=== PATIENT | female | born 1965 | race Caucasian/White ===

== ENCOUNTER 2016-06-16 15:20 | Inpatient (IN) | payer OTHER ==
[~2016-06-16] VITALS: Ht 157.5 cm; Wt 103.4 kg
--- NOTE | ~2016-06-16 | HC ---
[facility] [place] [address] CONSULTATION Name: LOU DURAN Room #: 458-P ADM IN M.R.#: [id number] Admission: 06/16/16 Attend Phys: Nahun Tello MD Discharge: Date of : 63 Report #: [id number] THIS REPORT FOR: //name// CC: Nahun Tello MD DATE OF SERVICE: 06/17/2016 REASON FOR CONSULTATION: Elevated creatinine level. HISTORY OF PRESENT ILLNESS: This is a 50-year-old female with a rather complex medical history. She relates most of this starting back in 2011 when she suffered a left parietal CVA. She was cared for in [place] at that time as she lived in [place], [place]. She does not recall the etiology of the CVA. No thrombosis that were found. She did not recall ever having a hypercoagulable workup. Yesterday, she began having some additional left-sided symptoms, which was the same side she had her symptoms in 2011. This included some mild left droop of her eyebrow, tingling and weakness in her left hand. She was sent to the Emergency Room. Radiologic studies were negative, but she was admitted. She has been seen by Dr. Hay of neurology and workup is again underway. During this time, she had admission labs which showed a creatinine level of 2.9 with a BUN of 55. In talking to her, she remembers a previous episode of acute kidney injury. Again, that was in about 2011. She was told she was near to needing dialysis, but apparently recovered. I do have one previous creatinine level available for August of 2015 done here in the Emergency Room and it was 0.8 at that time. She has a history of some hypertension. About a month ago, she was started on lisinopril. She has been chronically on some Maxzide. She was also started on some Celebrex about a month ago. I do not know of interim creatinine levels since she was put on those. She tells me she has had occasional urinary tract infection. She had one episode of kidney stone around the time of a child . She is unaware of proteinuria. She did say she has significant glycosuria as a child. PAST MEDICAL HISTORY: She had the CVA again in 2011, which would have been at age 46. Significantly before that, it sounds like she had a cardiac event and that is a bit undetermined what that was. She tends to run a tachycardia, quite often she is chronically on some metoprolol for that. She has obstructive sleep apnea and chronically wears BiPAP. She has had previous episodes of pancreatitis. PAST SURGICAL HISTORY: Include hysterectomy, two sections, right shoulder surgery and a cholecystectomy. MEDICATIONS ON ADMISSION: Include lisinopril 40 mg daily and just started a [facility] [address] [place] [address] CONSULTATION Name: LOU DURAN Room #: 458-P ADM IN M.R.#: [id number] Admission: 06/16/16 Attend Phys: Nahun Tello MD Discharge: Date of : 63 Report #: [id number] month ago it sounds like, albuterol inhaler, Adderall 10 mg daily, aspirin 81 mg daily, Celebrex 200 mg daily, estradiol 1 mg daily, gabapentin 600 mg in the morning and 300 mg at bedtime, p.r.n. hydrocodone, isosorbide mononitrate 30 mg daily, lansoprazole 30 mg b.i.d., lorazepam b.i.d., metoprolol 100 mg daily, Singulair 10 mg daily, Zoloft 100 mg b.i.d., Zanaflex 4 mg at bedtime, Maxzide 75/50 mg daily. ALLERGIES: No known medical allergies. FAMILY HISTORY: Negative for any renal disease, of which she is aware. SOCIAL HISTORY: The patient is single, lives in [place], [place]. 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 She is a nonsmoker. REVIEW OF SYSTEMS: States that she usually tends to run tachycardia. At times, she is symptomatic of that, but says it happens very frequently, that is why she is on the metoprolol. Denies current dyspnea, cough. She had 2 days of kind of an upset GI tract with mild nausea, had some loose stools, little bit of diarrhea, unaware of fevers, chills or sweats. She has some chronic arthralgias, that is why she is on the Celebrex, she might have also taken some p.r.n. Advil. She reports no dysuria, no change in urine appearance. She has had some mild visual changes that associate with her neurologic changes from yesterday. Says she does not regulate her diet much at all. I would note that there was one gallon jaw from pickles in her room, still half full of pickle juice and she says for years she has regularly taken pickle juice on a frequent basis, although she states she has been trying to cut down that recently. Does salt her food somewhat, but thinks she is cutting back on that. PHYSICAL EXAMINATION: GENERAL: A 50-year-old female, awake, alert, responsive and in no acute distress at this time. VITAL SIGNS: Blood pressures today have ranged from 97/37 to 146/80, heart rate is 86, temperature 97.4, oxygen saturation 100% and respiratory rate 18. HEENT: Shows pupils are equal and reactive. Sclerae are nonicteric. Oral mucosa is moist and without lesions. NECK: Supple, without adenopathy, thyromegaly, JVD or bruit. CHEST: Clear bilaterally in all lung galvez. HEART: Has a regular rate and rhythm and is not showing any signs of tachycardia. ABDOMEN: Obese, has active bowel sounds, is nontender. I cannot palpate organomegaly or masses. She has no CVA tenderness. EXTREMITIES: Show no peripheral edema. She has 2+ peripheral pulses. LABORATORY DATA: Sodium ____, potassium 4.4, chloride 100, bicarbonate 24, BUN 55, creatinine 2.9, glucose 106, calcium 9.5, magnesium 2.3, total protein 7.8, albumin 4.1. Normal liver function tests. INR 1.0. White count 12.9, [address] [address] CONSULTATION Name: LOU DURAN Room #: 458-P [facility] IN [facility].#: [id number] Admission: 06/16/16 Attend Phys: Nahun Tello MD Discharge: Date of : 63 Report #: [id number] hemoglobin 12.6, hematocrit 38.1, platelets 365,000. Differential, 75 neutrophils, 17 lymphs, 6 monos, 1 basophil. No urinalysis done. ASSESSMENT: 1. Acute kidney injury. She had a normal creatinine level in August 2015, so in the past 10 months it has gone up to this level. She had multiple medication changes recently including the initiation of lisinopril and the initiation of the Celebrex. She chronically was on a diuretic. She might have had some additional p.r.n. Advil. She has been asymptomatic from a urinary standpoint, no signs of recurrent infection. We certainly need to check a urine study as well as an ultrasound, but I think this is mostly medication related. I will put her on some IV normal saline, we will recheck creatinine in the morning and look for other evidence of intrinsic renal disease. I do not find anything by history to suggest that. Again, this is most likely medication related. 2. Neurologic changes as discussed by Dr. Hay, I will defer to him. 3. Hypertension by history, currently okay off medications. 4. History of prior cerebrovascular accident, 2011. Hypercoagulable workup being repeated by Dr. Hay and my greatest concern. 5. Chronic tachycardia, on metoprolol, she can continue that. 6. Sleep apnea, chronically wears BiPAP. She will need to continue that. PLAN: 1. Renal ultrasound. 2. Urine studies including urinalysis and fractional excretion of sodium. 3. Start her on IV fluids normal saline 100 mL per hour. 4. Stop her lisinopril, stop her Maxzide and stop her Celebrex. 5. Avoid other nonsteroidals. 6. Repeat labs in the morning. 7. We will follow along with care of this patient. 8. She will want to stay off the pickle juice nursing home due to the massive salt load she gets with that. <ELECTRONICALLY SIGNED> By: Zev Barillas MD 06/18/16 0816 1211 [id number] Zev Barillas MD /nt
--- NOTE | ~2016-06-16 | EKG ---
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
--- NOTE | ~2016-06-16 | H ---
[facility] [place] [address] HISTORY AND PHYSICAL Name: LOU DURAN Room #: 458-P [facility] IN M.R.#: [id number] Admission: 06/16/16 Attend Phys: Nahun Tello MD Discharge: 06/19/16 Date of : 63 Report #: [id number] THIS REPORT FOR: //name// CC: Nahun Tello DATE OF SERVICE: 06/17/2016 CHIEF COMPLAINT: Left-sided numbness, began at 10:00 on the . HISTORY OF PRESENT ILLNESS: The patient was work and felt left arm, face and leg numbness. She had been living that way and then developed these symptoms. She does report a history of a prior CVA in the past, hypertension and a prior OK. She has weakness on the left side from a prior OK. She does take aspirin and statin daily. She denies any slurred speech or loss of consciousness. PAST MEDICAL HISTORY: Significant for: 1. Prior CVA. 2. Hypertension. 3. OK, coronary artery disease. 4. Reflux. 5. History of pancreatitis. MEDICATIONS: Include Zanaflex 4 mg at bedtime, Nitrostat p.r.n., albuterol p.r.n., aspirin 81 mg a day, Singulair 10 mg a day, Adderall 10 mg a day, Ativan 1 mg b.i.d., hydrocodone p.r.n. pain, Phenergan 25 mg p.r.n., Zoloft 100 mg b.i.d., lisinopril 40 mg a day, Maxzide 75/50 daily, Estrace 1 mg a day, metoprolol 100 mg a day, Imdur 30 mg a day, gabapentin 600 mg in the morning and 300 at bedtime, Prevacid 30 mg b.i.d. and Celebrex 200 mg a day. SOCIAL HISTORY: Nonsmoker, nondrinker. ALLERGIES: No known allergies. REVIEW OF SYSTEMS: CONSTITUTIONAL: No fevers or chills. HEENT: No headaches or visual changes. CHEST: No chest pain, tightness in chest, shortness of breath, cough or sputum production. GASTROINTESTINAL: No nausea, vomiting, diarrhea or constipation. GENITOURINARY: No burning or frequency. EXTREMITIES: No pain. She has numbness as above. PHYSICAL EXAMINATION: VITAL SIGNS: Blood pressure 136/74, pulse is 95 and respiratory rate 17. She is afebrile. GENERAL: She is currently awake, alert and in no acute distress. [address] [address] HISTORY AND PHYSICAL Name: LOU DURAN Room #: 458-P [facility] IN ..#: [id number] Admission: 06/16/16 Attend Phys: Nahun Tello MD Discharge: 06/19/16 Date of : 63 Report #: [id number] HEENT: Her mucous membranes are moist. NECK: Supple, without adenopathy, thyromegaly or bruits. CHEST: Clear to auscultation. CARDIOVASCULAR: Regular rate and rhythm, without murmur. ABDOMEN: Soft. No masses. Bowel sounds are active. EXTREMITIES: Show no edema. She does have some mild paresthesia on the left side from a prior stroke. She currently has normal functioning and strength equally bilaterally. [id number] is intact. No pertinent drift. Her gait is normal. NEUROLOGIC: Mood is intact. LABORATORY DATA: EKG shows sinus rhythm with rate of 95. No ST-segment changes. Sodium 135, potassium 4.4, chloride 100, bicarbonate 24, BUN 55, creatinine 3.9, glucose 106 and calcium 9.5. Magnesium 2.3. AST 11, ALT 22, alkaline phosphatase 66, total protein is 7.8. INR is 1.0. WBCs are 12.9, hemoglobin 12.6, hematocrit 38.1, platelet count 365,000, segs [address] of the head shows no intracranial process. X-ray of the chest has no intracranial process. ASSESSMENT AND PLAN: 1. Transient ischemic attack. Neurology has seen. We will get an MRI and extensive workup. Dr. Hay thought that this was atypical for a stroke, more likely some other neurologic event. They will pursue the workup with blood work and CTA if needed. 2. Acute kidney injury. Started on IV fluids with consult to the renal. Stopping Celebrex, lisinopril and the diuretic. <ELECTRONICALLY SIGNED> By: Nahun Tello MD 06/28/16 1250 1324 1504 Nahun Tello MD /nt
--- NOTE | ~2016-06-16 | 2DMMODE ---
[facility] [place] [address] 2 D/M-MODE ECHOCARDIOGRAM Name: LOU DURAN Room #: 458-P [facility] IN M.R.#: [id number] Admission: 06/16/16 Attend Phys: Nahun Tello, Discharge: Date of : 63 Date of Service: 06/18/16 0753 Report #: [id number] THIS REPORT FOR: //name// Transthoracic Echocardiography Ordering physician: Zahida Gomez Referring physician: Zahida Gomez Take Off Man: Felicita Sánchez Indications/History: TIA. Hx: IL, CVA, HTN, obesity. BP: 111 / HR: 84bpm Height: 62in Weight: 229.5lb 63 Study data: M-mode, complete 2D, complete spectral Doppler, and color Doppler. Location: Bedside. Routine. Image quality was adequate. Intravenous contrast (agitated saline) was administered. 2D measurements Normal Normal LVID ED 44.4mm 36-57 IVS ED 10.1mm 6-11 LVID ES 25.6mm 23-40 LVPW ED 9.2mm 6-11 LA volume 16ml/m2 16-28 AoRoot diam 27.4mm 21-37 index ED LVOT diameter 20mm 18-23 Findings: Left ventricle: The cavity size was normal. Wall thickness was normal. Systolic function was normal. The estimated ejection fraction was in the range of 60% to 65%. Wall motion was normal. Right ventricle: The cavity size was normal. Systolic function was normal. Right atrium: The atrium was normal in size. Left atrium: The atrium was normal in size. Volume index: 16ml/m2 (S). Atrial septum: Small amount of shunting on contrast bubble injection consistent with a PFO. Aortic valve: Structurally normal valve. Doppler: [facility] [address] [place] [address] 2 D/M-MODE ECHOCARDIOGRAM Name: LOU DURAN Room #: 458-P [facility] IN [place].#: [id number] Admission: 06/16/16 Attend Phys: Nahun Tello, Discharge: Date of : 63 Date of Service: 06/18/16 0753 Report #: [id number] There was no stenosis. No regurgitation. Peak velocity: 142.3cm/s (S). Mitral valve: Structurally normal valve. Doppler: There was no evidence for stenosis. No regurgitation. Peak E-wave velocity: 85cm/s. Peak gradient: 2.9mm Hg (D). Peak A-wave velocity: 71.2cm/s. Tricuspid valve: Structurally normal valve. Doppler: There was no evidence for stenosis. Trivial regurgitation. Regurgitant peak velocity: 197.5cm/s. Peak RV-RA gradient: 16mm Hg (S). Pulmonic valve: Structurally normal valve. Doppler: There was no evidence for stenosis. Trivial regurgitation. Pericardium: There was no pericardial effusion. Aorta: Aortic root: The aortic root was normal in size. Pulmonary artery: Systolic pressure was estimated to be 21mm Hg. Diastolic function: Features are consistent with a pseudonormal left ventricular filling pattern, with concomitant abnormal relaxation and increased filling pressure (grade 2 diastolic dysfunction). Systemic veins: Inferior vena cava: The vessel was normal in size; the respirophasic diameter changes were in the normal range (= 50%). Conclusions 1. Left ventricle: Systolic function was normal. The estimated ejection fraction was in the range of 60% to 65%. Wall motion was normal. 2. Atrial septum: Small amount of shunting on contrast bubble injection consistent with a PFO. 3. Aortic valve: Structurally normal valve. There was no stenosis. No regurgitation. 4. Mitral valve: Structurally normal valve. No regurgitation. 5. Pericardium, extracardiac: There was no pericardial effusion. 6. Pulmonary arteries: Systolic pressure was estimated to be 21mm Hg. <ELECTRONICALLY SIGNED> By: Milind Thao MD, [facility] 06/18/16 1005 0753 1005 Milind Thao MD, [facility] /[email or web address]
[~2016-06-16 15:20] MED LIST: ACCUNEB SO1.25 MG/1; ADDERALL 10 MG10 MG PO; ASPIR 8181 MG PO; ATIVAN1 MG PO; NITROSTAT0.4 M1; NORCO 5-325 TA1 EACH PO; PHENERGAN 25 MG25 M1 PO; SINGULAIR 10 MG10 M1 PO; ZANAFLEX4 MG PO; ZOFRAN ODT4 MG PO; ZOLOFT100 MG PO
[2016-06-16 15:21] VITALS: BP 136/74
[2016-06-16 15:55] LABS: ABSOLUTE NEUTROPHILS 9.7 thou/uL (1.4-8.2); EOSINOPHILS 0.1 % (0.0-3.0); HEMATOCRIT 38.1 % (37.0-47.0); HEMOGLOBIN 12.6 gm/dL (12.0-15.0); LYMPHOCYTES 17.4 % (24.0-44.0); MCH 28.4 pg (26.0-34.0); MCHC 33.1 % (28.0-37.0); MCV 85.8 fL (80.0-100.0); MONOCYTES 6.3 % (1.0-8.0); PLATELET COUNT 365 thou/uL (150-400); POLYS 75.2 % (36.0-66.0); RBC 4.44 mil/uL (4.20-5.00); RDW 14.2 % (10.5-14.5); WBC 12.9 thou/uL (4.0-11.0)
[2016-06-16 15:56] LABS: MANUAL DIFF NO
[2016-06-16 16:03] LABS: ANION GAP 12 mmol/L (7-16); BUN 55 mg/dL (7-18); CALCIUM 9.5 mg/dL (8.5-10.1); CHLORIDE 100 mmol/L (98-107); CO2 24 mmol/L (21-32); CREATININE 2.9 mg/dL (0.6-1.3); GLUCOSE 106 mg/dL (70-99); POTASSIUM 4.4 mmol/L (3.5-5.1); SODIUM 136 mmol/L (136-145)
[2016-06-16 16:09] LABS: PROTIME 10.3 Seconds (9.3-11.4)
[2016-06-16 16:11] LABS: ALBUMIN 4.1 g/dL (3.4-5.0); ALKALINE PHOSPHATASE 66 U/L (46-116); MAGNESIUM 2.3 mg/dL (1.8-2.4); SGOT 11 U/L (15-37); SGPT 22 U/L (30-65); TOTAL BILIRUBIN 0.3 mg/dL (<0.1-1.0); TOTAL PROTEIN 7.8 g/dL (6.4-8.2); TROPONIN-I < 0.04 ng/mL (<0.04-0.07)
[2016-06-16] MEDS ORDERED: TRIAMTERENE-HC1 EAC3 PO (16:12)
[2016-06-16] MEDS ORDERED: LISINOPRIL40 MG PO (16:12)
[2016-06-16] MEDS ORDERED: ESTRADIOL 1 MG T1 M1 PO (16:12)
[2016-06-16] MEDS ORDERED: LOPRESSOR100 M1 PO (16:13)
[2016-06-16] MEDS ORDERED: IMDUR 30 MG TAB30 M1 PO (16:13)
[2016-06-16] MEDS ORDERED: NEURONTIN300 MG PO (16:14)
[2016-06-16] MEDS ORDERED: NEURONTIN 300300 M1 PO (16:14)
[2016-06-16] MEDS ORDERED: LANSOPRAZOLE30 MG PO (16:14)
[2016-06-16] MEDS ORDERED: CELEBREX 200 M200 M1 PO (16:15)
[2016-06-16 18:56] VITALS: BP 121/68
[2016-06-16 20:00] VITALS: BP 111/59
[2016-06-17 04:15] VITALS: BP 97/37
[2016-06-17 08:15] VITALS: BP 146/80
[2016-06-17 08:30] LABS: CHOLESTEROL 192 mg/dL (<200); HDL CHOLESTEROL 44 mg/dL (>40); LDL CHOLESTEROL 107 mg/dL (<100); TC:HDL 4.4 Ratio (Not establshd); TRIGLYCERIDE 207 mg/dL (<150); VLDL 41 mg/dL (<40)
[2016-06-17 12:31] VITALS: BP 143/92
[2016-06-17 13:16] LABS: URINE BILIRUBIN NEGATIVE (Negative); URINE BLOOD NEGATIVE (Negative); URINE COLOR YELLOW; URINE GLUCOSE-RANDOM* NEGATIVE (Negative); URINE KETONES NEGATIVE (Negative); URINE LEUKOCYTES-REFLEX NEGATIVE (Negative); URINE PROTEIN (DIPSTICK) NEGATIVE (Negative); URINE UROBILINOGEN 0.2 E.U./dl (0.2-1.0)
[2016-06-17 17:06] VITALS: BP 99/71
[2016-06-17 19:33] VITALS: BP 132/87
[2016-06-17 21:06] LABS: URINE CREATININE-RANDOM* 78.4 mg/dL (Not Estab.)
[2016-06-18 02:10] LABS: GLYCOHEMOGLOBIN (HGB A1C) 5.7 % (4.8-5.6)
[2016-06-18 03:51] VITALS: BP 111/63
[2016-06-18 06:34] LABS: ALBUMIN 3.3 g/dL (3.4-5.0); CALCIUM 8.4 mg/dL (8.5-10.1); PHOSPHORUS 3.9 mg/dL (2.5-4.9); POTASSIUM 4.3 mmol/L (3.5-5.1)
[2016-06-18 06:36] LABS: CREATININE 1.9 mg/dL (0.6-1.3)
[2016-06-18 08:33] VITALS: BP 117/59
[2016-06-18 13:14] VITALS: BP 125/70
[2016-06-18 15:30] VITALS: BP 118/46
[2016-06-18 21:02] VITALS: BP 126/65
[2016-06-19 04:20] VITALS: BP 121/67
[2016-06-19 06:10] LABS: CALCIUM 8.1 mg/dL (8.5-10.1); CREATININE 1.2 mg/dL (0.6-1.3); MAGNESIUM 1.7 mg/dL (1.8-2.4)
[2016-06-19 08:00] VITALS: BP 123/55
[2016-06-19 12:00] VITALS: BP 119/70
[2016-06-19 13:25] VITALS: BP 119/70
[2016-06-21 23:11] LABS: ANTITHROMBIN III 115 % (75-135); DIL. RUSSELL VIPER VENOM 50.6 sec (0.0-44.0)
[2016-06-23 14:11] LABS: LYME ANTIBODY SCREEN* <0.91 ISR (0.00-0.90)
== END 2016-06-19 16:13 | disposition home or self-care (01) | DRG 683 ==
LOC: ER 15:20 → 4W 16:39 → EROBS 16:39 → 4W 18:54
PROVIDERS: Emergency Medicine; Internal Medicine; Internal Medicine Nephrology; Psychiatry & Neurology Neurology; Psychiatry & Neurology Neuromuscular Medicine
DX: N17.9 Acute kidney failure, unspecified (principal); Z68.41 Body mass index [BMI] 40.0-44.9, adult; I10 Essential (primary) hypertension; E78.5 Hyperlipidemia, unspecified; K21.9 Gastro-esophageal reflux disease without esophagitis; E66.9 Obesity, unspecified; R20.0 Anesthesia of skin; Z82.49 Family history of ischemic heart disease and other diseases of the circulatory system; Z86.73 Personal history of transient ischemic attack (TIA), and cerebral infarction without residual deficits; I25.2 Old myocardial infarction
CPT/HCPCS: 10045

== ENCOUNTER → 2016-09-22 | Outpatient (CLI) | payer OTHER ==
[~2016-09-22] MED LIST changes: +CELEBREX 200 M200 M1 PO; +ESTRADIOL 1 MG T1 M1 PO; +IMDUR 30 MG TAB30 M1 PO; +LANSOPRAZOLE30 MG PO; +LISINOPRIL40 MG PO; +LOPRESSOR100 M1 PO; +NEURONTIN 300300 M1 PO; +NEURONTIN300 MG PO; +TRIAMTERENE-HC1 EAC3 PO
[2016-09-24 00:06] LABS: HEX. PHASE PHOSPHOLIPID 1 sec (0-11)
== END ==
LOC: LABMALL 10:50
PROVIDERS: Internal Medicine Hematology & Oncology
DX: I63.9 Cerebral infarction, unspecified (principal)

== ENCOUNTER 2017-04-01 05:17 | Day surgery (SDC) | payer OTHER ==
[~2017-04-01] VITALS: Ht 157.5 cm; Wt 108.4 kg
--- NOTE | ~2017-04-01 | O ---
[address] [address] OPERATIVE REPORT Name: LOU DURAN Room #: 416-P [facility]..#: [id number] Admission: 04/01/17 Attend Phys: Humza Mccray MD, F Discharge: Date of : 63 Report #: [id number] THIS REPORT FOR: //name// CC: EMELY Mccray DATE OF SERVICE: 04/01/2017 SURGEON: Humza Mccray M.D. COTTON EXPERT: Renan Carney M.D. PREOPERATIVE DIAGNOSES: 1. Morbid obesity. 2. Gastroesophageal reflux disease. 3. Hypertension. 4. History of stroke. 5. Depression. 6. Fibromyalgia. 7. Arthritis. 8. Obstructive sleep apnea. POSTOPERATIVE DIAGNOSES: 1. Morbid obesity. 2. Gastroesophageal reflux disease. 3. Hypertension. 4. History of stroke. 5. Depression. 6. Fibromyalgia. 7. Arthritis. 8. Obstructive sleep apnea. PROCEDURE: Laparoscopic sleeve gastrectomy with EGD. ANESTHESIA: General endotracheal anesthesia and local anesthetic. ESTIMATED BLOOD LOSS: 5 mL. SPECIMEN: Lateral stomach. COMPLICATIONS: None appreciated. INDICATIONS FOR PROCEDURE: This is a 51-year-old female patient who stands 5 feet 2 inches and weighs 237 pounds at her most recent office visit with a BMI [address] [address] OPERATIVE REPORT Name: LOU DURAN Room #: 416-P REG [facility]..#: [id number] Admission: 04/01/17 Attend Phys: Humza Mccray MD, F Discharge: Date of : 63 Report #: [id number] of 43.4. Most of her weight issues have been over the past 3 years, during which time she had gone from 180 pounds to as high as 390 pounds, now down to her current weight. Her maximum weight was felt to be secondary to steroids, which she took for respiratory failure. She has tried numerous weight loss programs and plans with limited weight loss success. Any amount of weight she has lost, she has quickly regained plus additional weight after stopping the modality. She has numerous weight-associated comorbid conditions and complaints. She has been cleared for surgery from a multidisciplinary standpoint and her anticoagulation has been addressed by Dr. Erma Dillard with the hematology service. Bariatric surgery is indicated. She presents today for laparoscopic sleeve gastrectomy with EGD. OPERATIVE FINDINGS: On EGD, the patient's esophagus, stomach and duodenum to the third portion were normal without appreciable polyps, masses, diverticula, or ulcers. On retroflexion of the scope within the antrum of the stomach, a hiatal hernia was not seen. Laparoscopically, the patient had an enlarged stomach. Her liver was relatively normal-sized without francheska steatohepatitis changes. The colon and small bowel in the surrounding area appeared otherwise normal. The gastric sleeve staple line was located 1 cm lateral to the GE junction, 3 cm lateral to the incisura, and 4 cm lateral to the pylorus. The leak test was negative, whereby immediately after applying Tisseel to the staple line, the gastroscope was used to gently insufflate air into the stomach and no air bubbles were seen forming within the Tisseel. There was no endoluminal bleeding seen with the gastroscope. No other significant intraabdominal pathology was identified. At the conclusion of the operation, the sponge, needle, and instrument counts were correct. There was no evidence for iatrogenic injury. The excised stomach held nearly 1 liter of fluid on the back table. DESCRIPTION OF PROCEDURE IN DETAIL: After the benefits and risks of the procedure were explained to the patient which include but are not limited to risks of bleeding, infection, postoperative pain, postoperative expectations and risks of DVT and pulmonary embolus, informed consent was obtained. The patient was identified in the preoperative holding area. The patient was given IV antibiotics as documented in the chart in line with SCIP protocol. The patient was then taken to the operating room and was placed in the supine position. The patient was given IV sedation and was intubated without incident. SCDs were placed on the patient's bilateral lower extremities prior to induction of anesthesia. The patient had been placed in the modified low lying dorsal lithotomy position in stirrups on the beanbag. The beanbag and the patient were taped to the bed to secure the patient. A time-out was then performed to correctly identify the patient and procedure. An orogastric tube was placed by anesthesia. A bite block was placed and the fiberoptic EGD scope was passed into the patient's oropharynx, down the [address] [address] OPERATIVE REPORT Name: LOU DURAN Room #: 416-P REG [facility]..#: [id number] Admission: 04/01/17 Attend Phys: Humza Mccray MD, F Discharge: Date of : 63 Report #: [id number] esophagus, into the stomach, and into the third portion of the duodenum. Findings are as noted above. The scope was slowly withdrawn into the antrum and the scope was retroflexed. The hiatus was visualized. The scope was then straightened and the end of the gastroscope was placed at the pylorus. The stomach was decompressed with the scope. The patient's abdomen was then prepped and draped in the standard sterile fashion with surgical prep. Local anesthetic was infiltrated into the skin and subcutaneous tissue in the left supraumbilical area where a sharp #15-blade scalpel was used to make a 5-mm incision. The 5-mm Visiport was placed intraperitoneally with the 5-mm 0-degree angled laparoscope. Pneumoperitoneum was then achieved with insufflation of carbon dioxide to 15 mmHg. A 5-mm 30-degree angled laparoscope was then inserted. The 15-mm port was placed in the right supraumbilical area after local anesthetic was infiltrated into the skin and subcutaneous tissue and an appropriately sized incision was made. Two additional 5 mm ports were placed in the left abdomen after local anesthetic was infiltrated and incisions were made. All ports were placed under direct visualization. The patient was then placed in reverse Trendelenburg position. Local anesthetic was infiltrated into the skin and subcutaneous tissue in the subxiphoid area and a 5-mm incision was made through which a 5-mm obturator was passed into the abdominal cavity through the fascia to create a passageway for the Ac liver retractor. The retractor was placed to retract the liver anteriorly. The retractor was held in place with the Iron Foreign Language Stenographer apparatus. All abdominal adhesions were then taken down with blunt dissection, sharp dissection and judicious use of the ultrasonic dissector. The gastrosplenic ligament and short gastric vessels were then divided using the ultrasonic dissector with appropriate traction. Bleeding points were made hemostatic with the ultrasonic dissector. Dissection was carried proximally up to the left coy of the diaphragm. The distal end point of dissection was then measured at 4 cm proximal to the pylorus. The short gastric vessels and gastrocolic ligaments were dissected to that level. The stomach was then rotated medially to visualize any posterior attachments/adhesions to the stomach. The adhesions were dissected with a combination of sharp dissection and use of the ultrasonic dissector. The endoscope was then slightly withdrawn to place it along the lesser curvature of the stomach. Suction was applied to the orogastric tube which was then removed, leaving the endoscope in place as a bougie. The gastric sleeve was then created. Two black loads of the powered endoscopic DANIELITO stapler buttressed with Atiya-Strips were used to staple and divide the stomach 4 cm proximal to the pylorus. Additional green loads buttressed with Atiya-strips were used to staple off the remainder of the stomach using the endoscope as the bougie. Care was taken to ensure that greater than 3 cm of space was present between the incisura and the staple line. The stomach was fully transected and placed in the right upper quadrant of the abdomen for later [address] [address] OPERATIVE REPORT Name: LOU DURAN Room #: 416-P REG [facility] M.R.#: [id number] Admission: 04/01/17 Attend Phys: Humza Mccray MD, F Discharge: Date of : 63 Report #: [id number] removal. The staple line of the sleeve was then clipped with Hemoclips along the staple line to provide hemostasis. Tisseel was applied to the entire length of the staple line with the Duplospray aerosolizer to fully ensure hemostasis. A leak test was performed next. The sleeve was insufflated with the endoscope which was slowly withdrawn. No air bubbles were seen in the Tisseel laparoscopically. Endoluminally, no bleeding was seen. The stomach was fully decompressed and the scope was slowly withdrawn. The Ac liver retractor was then loosened from the Iron Foreign Language Stenographer apparatus and it was removed without difficulty. The stomach was then removed from the patient's body through the 15-mm port under direct visualization. A small amount stretching of the fascia was required to create an opening large enough for removal of the stomach. After its removal, the 15-mm port site fascial opening was closed with an 0-PDS suture using the Wilmer-Danielle laparoscopic fascial closure device. All ports were removed after the abdominal cavity was desufflated. The fascial suture was tied. Interrupted subcuticular 4-0 Monocryl sutures and Dermabond were used to close all skin incisions. The patient tolerated the procedure well. The patient was awakened, extubated and taken to the recovery room in stable condition with no apparent intraoperative complications. By: 0022 0051 Humza Mccray MD, FACS /nt
--- NOTE | ~2017-04-01 | S ---
[facility] [address] [place] [address] SURGICAL PATH RPT PROCEDURE Name: LOU DURAN ERIC Room #: 416-P REG [facility] M.R.#: [id number] Admission: 04/01/17 Date of : 63 Discharge: Report #: [id number] Path Case #: [id number] PATHOLOGY REPORT DRAFT COLLECTION DATE: 04/01/2017 RECEIVED DATE: 04/01/2017 SPECIMEN(S) RECEIVED: JaguarGastric dustin
[~2017-04-01 05:17] MED LIST changes: +ALBUTEROL2.5 MG/31 INH; +MULTI VITAMIN1 EACH PO; +NITROGLYCERIN0.4 MG SUBLING; +NORVASC5 MG PO; +PREVACID30 MG PO; +TRAMADOL 50 MG50 MG PO; +VENTOLIN HFA 1818 GM INH
[2017-04-01 07:00] VITALS: BP 139/81
[2017-04-01 07:23] LABS: HEMATOCRIT 41.3 % (37.0-47.0); MCH 27.6 pg (26.0-34.0); MCHC 33.9 g/dL (28.0-37.0); MCV 81.5 fL (80.0-100.0); RBC 5.07 mil/uL (4.20-5.00); RDW 14.8 % (10.5-14.5); WBC 10.2 thou/uL (4.0-11.0)
[2017-04-01 07:37] LABS: CALCIUM 9.6 mg/dL (8.5-10.1); CREATININE 0.9 mg/dL (0.6-1.0); POTASSIUM 3.5 mmol/L (3.5-5.1)
[2017-04-01] MEDS ORDERED: ZOFRAN ODT4 MG PO (09:35)
[2017-04-01] MEDS ORDERED: HYDROCODONE-ACE15 ML PO (09:35)
[2017-04-01 10:40] VITALS: BP 127/65
[2017-04-01 12:46] VITALS: BP 126/58
[2017-04-01 15:15] VITALS: BP 129/61
[2017-04-01 20:05] VITALS: BP 149/81
[2017-04-01 23:29] VITALS: BP 141/69
[2017-04-02 04:30] VITALS: BP 117/55
[2017-04-02 06:42] LABS: CALCIUM 8.5 mg/dL (8.5-10.1); CREATININE 0.5 mg/dL (0.6-1.0)
[2017-04-02 06:48] LABS: POTASSIUM 4.6 mmol/L (3.5-5.1)
[2017-04-02 07:44] VITALS: BP 113/67
[2017-04-02 11:55] LABS: ABSOLUTE NEUTROPHILS 11.3 thou/uL (1.4-8.2); BASOPHILS 0.7 % (0.0-2.0); EOSINOPHILS 0.1 % (0.0-3.0); HEMATOCRIT 38.8 % (37.0-47.0); HEMOGLOBIN 13.2 gm/dL (12.0-15.0); LYMPHOCYTES 17.1 % (24.0-44.0); MCH 28.5 pg (26.0-34.0); MCHC 34.1 g/dL (28.0-37.0); MCV 83.6 fL (80.0-100.0); MONOCYTES 8.9 % (1.0-8.0); PLATELET COUNT 346 thou/uL (150-400); POLYS 73.2 % (36.0-66.0); RBC 4.64 mil/uL (4.20-5.00); RDW 15.3 % (10.5-14.5); WBC 15.4 thou/uL (4.0-11.0)
[2017-04-02 11:59] LABS: MANUAL DIFF NO
[2017-04-02 12:51] VITALS: BP 113/67
== END 2017-04-02 13:25 | disposition home or self-care (01) ==
LOC: OR 05:17 → TBA 05:17 → EDSTATUS 08:37 → OR 08:40 → 4N 10:43 → GI 12:06 → OR 12:37
PROVIDERS: Anesthesiology; Surgery
DX: E66.01 Morbid (severe) obesity due to excess calories (principal); K21.9 Gastro-esophageal reflux disease without esophagitis; I10 Essential (primary) hypertension; I25.2 Old myocardial infarction; M79.7 Fibromyalgia; M19.90 Unspecified osteoarthritis, unspecified site; G47.33 Obstructive sleep apnea (adult) (pediatric); F32.89 Other specified depressive episodes; J45.909 Unspecified asthma, uncomplicated; Z90.710 Acquired absence of both cervix and uterus; Z86.73 Personal history of transient ischemic attack (TIA), and cerebral infarction without residual deficits; Z79.899 Other long term (current) drug therapy; Z98.890 Other specified postprocedural states; Z68.41 Body mass index [BMI] 40.0-44.9, adult
CPT/HCPCS: 50010; 50101

== ENCOUNTER → 2019-01-09 | Outpatient (CLI) | payer OTHER, BC ==
[~2019-01-09] MED LIST changes: +CIPRO500 MG PO; +HYDROCHLOROTH12.5 M2 PO; +HYDROCODONE-ACE15 ML PO; +HYDROXYCHLOROQ200 M1 PO; +KEFLEX500 M1 PO; +MIDODRINE HCL 55 M1 PO
== END ==
LOC: CAT 15:39
DX: K57.30 Diverticulosis of large intestine without perforation or abscess without bleeding (principal); K86.89 Other specified diseases of pancreas; N28.1 Cyst of kidney, acquired; I70.0 Atherosclerosis of aorta; K56.41 Fecal impaction; M48.07 Spinal stenosis, lumbosacral region; Z90.49 Acquired absence of other specified parts of digestive tract

== ENCOUNTER 2019-10-10 15:30 | Emergency (ER) | payer OTHER, BC ==
[~2019-10-10] VITALS: Ht 157.5 cm; Wt 76.2 kg
[~2019-10-10 15:30] MED LIST changes: +IBUPROFEN 800800 M1 PO; +NORCO 5-325 TA1 EAC1 PO; +PROTONIX40 M4 PO
[2019-10-10 15:56] VITALS: BP 145/90
== END 2019-10-10 16:31 | disposition home or self-care (01) ==
LOC: ER 15:30
DX: R06.02 Shortness of breath (principal); Z20.828 Contact with and (suspected) exposure to other viral communicable diseases; R50.9 Fever, unspecified; R19.7 Diarrhea, unspecified; K30 Functional dyspepsia; K21.9 Gastro-esophageal reflux disease without esophagitis; I25.2 Old myocardial infarction; I10 Essential (primary) hypertension; F32.9 Major depressive disorder, single episode, unspecified; F41.9 Anxiety disorder, unspecified; M79.7 Fibromyalgia; Z88.8 Allergy status to other drugs, medicaments and biological substances; Z86.73 Personal history of transient ischemic attack (TIA), and cerebral infarction without residual deficits; Z90.49 Acquired absence of other specified parts of digestive tract; Z90.711 Acquired absence of uterus with remaining cervical stump; Z98.890 Other specified postprocedural states; Z79.899 Other long term (current) drug therapy

== ENCOUNTER 2019-10-17 12:53 | Emergency (ER) | payer OTHER, BC ==
[~2019-10-17] VITALS: Ht 157.5 cm; Wt 74.8 kg
[2019-10-17] MEDS ORDERED: ADDERALL 30 MG30 MG PO (13:15)
[2019-10-17] MEDS ORDERED: TRELEGY ELLIPT1 EACH PO (13:17)
[2019-10-17] MEDS ORDERED: PREDNISONE 5 MG5 M1 PO (13:18)
[2019-10-17] MEDS ORDERED: CIPRO500 M1 PO (13:18)
[2019-10-17] MEDS ORDERED: LINZESS72 MCG PO (13:19)
[2019-10-17] MEDS ORDERED: ZANAFLEX4 M1 PO (13:19)
[2019-10-17] MEDS ORDERED: HYDROCHLOROTHIA25 M2 PO ×2 (13:20→13:24)
[2019-10-17] MEDS ORDERED: MOBIC7.5 MG PO (13:21)
[2019-10-17] MEDS ORDERED: ESTRACE1 MG PO (13:22)
[2019-10-17] MEDS ORDERED: ATIVAN1 M1 PO (13:23)
[2019-10-17 14:23] LABS: ABSOLUTE NEUTROPHILS 4.6 thou/uL (1.4-8.2); BASOPHILS 0.8 % (0.0-2.0); HEMATOCRIT 40.6 % (37.0-47.0); HEMOGLOBIN 13.5 gm/dL (12.0-15.0); LYMPHOCYTES 28.8 % (24.0-44.0); MCH 28.4 pg (26.0-34.0); MCHC 33.3 g/dL (28.0-37.0); MCV 85.3 fL (80.0-100.0); MONOCYTES 8.4 % (1.0-8.0); PLATELET COUNT 336 thou/uL (150-400); RBC 4.76 mil/uL (4.20-5.00); RDW 14.4 % (10.5-14.5); WBC 7.5 thou/uL (4.0-11.0)
[2019-10-17 14:34] LABS: ANION GAP 7 mmol/L (7-16); BUN 13 mg/dL (7-18); CALCIUM 8.8 mg/dL (8.5-10.1); CHLORIDE 105 mmol/L (98-107); CO2 29 mmol/L (21-32); CREATININE 0.9 mg/dL (0.6-1.0); GLUCOSE 94 mg/dL (74-106); POTASSIUM 3.5 mmol/L (3.5-5.1); SODIUM 141 mmol/L (136-145)
[2019-10-17 14:44] LABS: SGOT 19 U/L (15-37); SGPT 15 U/L (30-65); TOTAL BILIRUBIN 0.5 mg/dL (<0.1-1.0); TOTAL PROTEIN 7.7 g/dL (6.4-8.2); TROPONIN-I <0.06 ng/mL (<0.06)
--- NOTE | 2019-10-17 15:54 | EKG ---
[facility] [place] [address] ELECTROCARDIOGRAM REPORT Name: LOU WHITMAN Room #: REG [facility].#: [id number] Admission: 10/17/19 Attend Phys: Discharge: Date of : 63 Report #: [id number] THIS REPORT FOR: cc: Nahun Tello MD, Neal A. MD Couchonnal, Luis F. 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
[2019-10-17 16:55] VITALS: BP 152/95
== END 2019-10-17 16:55 | disposition home or self-care (01) ==
LOC: ER 12:53
PROVIDERS: Physician Assistant
DX: R00.0 Tachycardia, unspecified (principal); R06.02 Shortness of breath; I10 Essential (primary) hypertension; K21.9 Gastro-esophageal reflux disease without esophagitis; M79.7 Fibromyalgia; G47.30 Sleep apnea, unspecified; F41.9 Anxiety disorder, unspecified; F31.9 Bipolar disorder, unspecified; Z86.73 Personal history of transient ischemic attack (TIA), and cerebral infarction without residual deficits; Z90.49 Acquired absence of other specified parts of digestive tract; Z90.710 Acquired absence of both cervix and uterus; Z98.890 Other specified postprocedural states; Z86.2 Personal history of diseases of the blood and blood-forming organs and certain disorders involving the immune mechanism; Z88.8 Allergy status to other drugs, medicaments and biological substances

== ENCOUNTER → 2019-10-25 | Outpatient (CLI) | payer OTHER, BC ==
[~2019-10-25] MED LIST changes: +ADDERALL 30 MG30 MG PO; +ATIVAN1 M1 PO; +CIPRO500 M1 PO; +ESTRACE1 MG PO; +HYDROCHLOROTHIA25 M2 PO; +LINZESS72 MCG PO; +MOBIC7.5 MG PO; +PREDNISONE 5 MG5 M1 PO; +TRELEGY ELLIPT1 EACH PO; +ZANAFLEX4 M1 PO
== END ==
LOC: ULTRA 07:47
DX: E04.2 Nontoxic multinodular goiter (principal)

== ENCOUNTER → 2019-11-07 | Outpatient (CLI) | payer OTHER | LOC: SJCVCIMAG 07:49 | DX: R00.0 Tachycardia, unspecified (principal); E78.5 Hyperlipidemia, unspecified; Z86.73 Personal history of transient ischemic attack (TIA), and cerebral infarction without residual deficits ==

== ENCOUNTER → 2019-11-28 | Outpatient (CLI) | payer OTHER | LOC: SJCVCIMAG 07:21 | PROVIDERS: ATTEND Internal Medicine | DX: R00.1 Bradycardia, unspecified (principal); I10 Essential (primary) hypertension; Z79.899 Other long term (current) drug therapy; Z88.8 Allergy status to other drugs, medicaments and biological substances ==

== ENCOUNTER → 2020-02-05 | Outpatient (CLI) | payer OTHER | LOC: LAB 14:16 | PROVIDERS: ATTEND Anesthesiology | DX: Z01.812 Encounter for preprocedural laboratory examination (principal); Z20.828 Contact with and (suspected) exposure to other viral communicable diseases ==

== ENCOUNTER → 2020-07-07 | Outpatient (CLI) | payer OTHER ==
[~2020-07-07] MED LIST changes: +IMURAN 50MG TAB50 M1 PO; +LEVOTHYROXINE50 MC1 PO; +LINZESS290 MCG PO; -NEURONTIN 300300 M1 PO; +NEURONTIN 300M300 M2 PO; +PEPCID40 MG PO; +PROAIR HFA8.5 GM INH; +SERTRALINE HCL50 MG PO; +TERBINAFINE HC250 MG PO; +TOPROL XL50 MG; +VITAMIN D31250 MC1 PO
== END ==
LOC: LAB
PROVIDERS: ATTEND Internal Medicine Gastroenterology
DX: Z01.812 Encounter for preprocedural laboratory examination (principal); Z20.822 Contact with and (suspected) exposure to COVID-19

== ENCOUNTER → 2020-07-11 | Outpatient (CLI) | payer OTHER ==
[~2020-07-11] VITALS: Ht 157.5 cm; Wt 81.7 kg
--- NOTE | 2020-07-15 16:06 | PATH ---
[facility] [address] [place] [address] PATHOLOGY RPT PROCEDURE Name: ALECIA WAY Room #: REG FELIX Erica.#: [id number] Admission: 07/11/20 Date of : 63 Discharge: Report #: [id number] Path Case #: [id number] [facility] Accession Number: [id number] . 01 Material submitted: . PART A: stomach - RANDOM GASTRIC R/O H. PYLORI PART B: esophagus - RANDOM ESOPHAGEAL R/O EOSINOPHILIC ESOPHAGITIS PART C: hepatic flexure - HEPATIC FLEXURE POLYP PART D: colon - TRANSVERSE COLON POLYP. Modifiers: transverse PART E: colon - DESCENDING COLON POLYP. Modifiers: descending . 01 Clinical history: . SCREENING/GERD/FAMILY HX OF COLON CA COLON POLYPS, GASTRITIS, ESOPHAGITIS, HIATAL HERNIA . 02 Diagnosis: A. Gastric mucosa, random gastric, endoscopic biopsy: - Mild reactive gastropathy. - Negative for intestinal metaplasia or atrophy. - Negative for Helicobacter pylori (properly controlled immunohistochemical stain performed). . B. Squamous mucosa, random esophageal rule out eosinophilic esophagitis, endoscopic biopsy: - Mild active esophagitis with rare intraepithelial eosinophils (2-3/HPF). - Negative for intestinal metaplasia or dysplasia. . C. Polyp, hepatic flexure, endoscopic biopsy: - Tubular adenoma. - Negative for high grade dysplasia. . D. Polyp, transverse colon polyp, endoscopic biopsy: - Tubular adenoma. - Negative for high grade dysplasia. . E. Polyp, descending colon polyp, endoscopic biopsy: - Tubular adenoma. - Negative for high grade dysplasia. (IUV/db; 07/15/2020) LBQ 07/15/2020 1400 Local . 02 Electronically signed: . Maci Llanos MD, Pathologist NPI- [id number] . 01 Gross description: . A. The specimen is received in formalin, labeled "Alecia Way, biopsy [address] [address] PATHOLOGY RPT PROCEDURE Name: ALECIA WAY Room #: REG CLI [facility].#: [id number] Admission: 07/11/20 Date of : 63 Discharge: Report #: [id number] Path Case #: [id number] random gastric, R/O H. pylori". Received are five segments of pale serrato soft tissue ranging in size from 0.3 to 0.5 cm in maximum dimensions. The specimen is submitted entirely in cassette A1. . B. The specimen is received in formalin, labeled "[address], biopsy random esophageal, R/O eosinophilic esophagitis". Received are five segments of pale serrato soft tissue ranging in size from 0.3 to 0.6 cm in maximum dimensions. The specimen is submitted entirely in cassette B1. . C. The specimen is received in formalin, labeled "[address], biopsy hepatic flexure colon polyp". Received is a segment of pale serrato soft tissue measuring 0.5 cm in maximum dimensions. The specimen is submitted entirely in cassette C1. . D. The specimen is received in formalin, labeled "[address], biopsy transverse colon polyp". Received is a segment of pale serrato soft tissue measuring 0.7 cm in maximum dimensions with an attached segment of pale serrato mucosa measuring 1.5 cm in length by 0.3 cm in diameter. The specimen is submitted entirely in cassette D1. . E. The specimen is received in formalin, labeled "[address], biopsy descending colon polyp". Received are three segments of pale serrato soft tissue ranging in size from 0.5 to 0.7 cm in maximum dimensions. The specimen is submitted entirely in cassette E1. ([facility]; 07/14/2020) QAC/QAC 07/14/2020 1105 Local . 02 Pathologist provided ICD-10: K31.9, K20.90, D12.3, D12.4 . 02 CPT . 497721, 127224, 583145, 287864, 930630, Q10697 Specimen Comment: A courtesy copy of this report has been sent to [phone] Specimen Comment: Report sent to Performed at: [address] [facility], [place] [id number] MD Fan [place] MD Phone: [phone] Performed at: [address] [facility] [address] [id number] MD Maci Llanos MD Phone: [phone]
== END | disposition home or self-care (01) ==
LOC: GI
PROVIDERS: ATTEND Internal Medicine Gastroenterology
DX: Z12.11 Encounter for screening for malignant neoplasm of colon (principal); Z80.0 Family history of malignant neoplasm of digestive organs; D12.4 Benign neoplasm of descending colon; D12.3 Benign neoplasm of transverse colon; K21.00 Gastro-esophageal reflux disease with esophagitis, without bleeding; R13.10 Dysphagia, unspecified; K31.89 Other diseases of stomach and duodenum; K25.9 Gastric ulcer, unspecified as acute or chronic, without hemorrhage or perforation; K29.50 Unspecified chronic gastritis without bleeding; K44.9 Diaphragmatic hernia without obstruction or gangrene; I25.2 Old myocardial infarction; M79.7 Fibromyalgia; G47.30 Sleep apnea, unspecified; J45.909 Unspecified asthma, uncomplicated; F32.9 Major depressive disorder, single episode, unspecified; F41.9 Anxiety disorder, unspecified; Z98.890 Other specified postprocedural states; Z79.899 Other long term (current) drug therapy; Z90.49 Acquired absence of other specified parts of digestive tract; Z90.710 Acquired absence of both cervix and uterus; Z98.84 Bariatric surgery status; Z88.8 Allergy status to other drugs, medicaments and biological substances
CPT/HCPCS: 62110; 62900

== ENCOUNTER → 2020-10-15 | Outpatient (CLI) | payer OTHER, BC ==
[~2020-10-15] MED LIST changes: +AMOXIL 875 MG875 M1 PO; +DESYREL150 MG PO; +PREDNISONE 20 M20 MG PO; +TRELEGY ELLIPT1 EACH INH
[2020-10-15 12:46] VITALS: BP 132/69
--- NOTE | 2020-10-23 15:11 | LINQ ---
[facility] [place] [address] LINQ PROCEDURE REPORT Name: J CARLOSLOU ERIC Room #: REG FELIX Yee#: [id number] Admission: 10/15/20 Attend Phys: Jesus Manuel Gaspar Discharge: Date of : 63 Report #: [id number] THIS REPORT FOR: cc: Eric Brown Beth RNP Lammoglia, Francisco J. MD ~ APPROVED REPORT Study performed: 10/15/2020 12:53:02 Patient Status: Out-Patient Room #: Event Personnel: Jesus Manuel Gaspar MD Exam: Medtronic LINQ Implant Indications: Palpitations with a history of supraventricular tachycardia The patient is a 55 year-old female with a history of Supraventricular tachycardia with increasing frequency of palpitations not identified on event monitor. Implanted Devices: Medtronic Reveal LINQ; Model # LNQ11; Serial # [id number]; Use By 2021-05-03 Procedure The patient underwent informed consent. We discussed the details of the procedure including the risks, which include, but not limited to bleeding, infection, vascular damage, cardiac perforation, and pneumothorax. Abdomen: Consent was obtained the patient was brought to the cardiac catheterization laboratory prepped and hold. The left chest was prepped and draped in usual sterile manner. Utilizing 1% lidocaine a wheal was raised and extended along the tract of insertion with a 27-gauge spinal needle. A 11 blade was then utilized to a small incision was made. Using both sharp and blunt dissection a tract was developed and the device was then deployed with the enclosed deployment tool. P waves were verified and were satisfactory. Subcutaneous tissue was then closed with 2 simple interrupted sutures and the skin was closed with a 3-0 absorbable suture in a subcutaneous stitch. Steri-Strips 4 x 4 OpSite were utilized. Complications The patient tolerated the procedure well and there were no complications associated with the procedure. [address] [address] LINQ PROCEDURE REPORT Name: LOU WHITMAN Room #: REG CL [facility]#: [id number] Admission: 10/15/20 Attend Phys: Jesus Manuel Booker Discharge: Date of : 63 Report #: [id number] Findings Specimens Removed: N/A Conclusion 1. Successful insertion of an implantable loop recorder Medtronic Linq Recommendations 1. Routine post insertion protocol <ELECTRONICALLY SIGNED> By: Jesus Manuel Gaspar MD 10/23/201 10 10 Jesus Manuel Gaspar MD /INF
== END | disposition home or self-care (01) ==
LOC: CATH 07:47
PROVIDERS: ATTEND Internal Medicine
DX: R00.2 Palpitations (principal); I47.1 Supraventricular tachycardia; J44.9 Chronic obstructive pulmonary disease, unspecified; Z98.890 Other specified postprocedural states; Z79.899 Other long term (current) drug therapy; Z86.73 Personal history of transient ischemic attack (TIA), and cerebral infarction without residual deficits; Z88.8 Allergy status to other drugs, medicaments and biological substances

== ENCOUNTER → 2020-10-21 | Outpatient (CLI) | payer OTHER | LOC: RAD 08:22 | PROVIDERS: ATTEND Surgery | DX: K21.9 Gastro-esophageal reflux disease without esophagitis (principal); K44.9 Diaphragmatic hernia without obstruction or gangrene; M41.86 Other forms of scoliosis, lumbar region; Z90.49 Acquired absence of other specified parts of digestive tract ==

== ENCOUNTER 2020-12-12 06:01 | Inpatient (IN) | payer OTHER, BC ==
[~2020-12-12] VITALS: Ht 157.5 cm; Wt 81.2 kg
--- NOTE | ~2020-12-12 | O ---
[facility] [place] [address] [place] [address] OPERATIVE REPORT Name: LOU WHITMAN Room #: 454-P [facility] M.R.#: [id number] Admission: 12/12/20 Attend Phys: Tate Rojas MD Discharge: 12/15/20 Date of : 63 Report #: [id number] THIS REPORT FOR: cc: Nahun Tello MD, Neal A. MD Joseph, Sigi P. MD ~ DATE OF SERVICE: 12/13/2020 PREOPERATIVE DIAGNOSES: 1. Refractory reflux. 2. Hiatal hernia. 3. History of gastric sleeve. 4. Obesity. POSTOPERATIVE DIAGNOSES: 1. Refractory reflux. 2. Hiatal hernia. 3. History of gastric sleeve. 4. Obesity. OPERATIVE PROCEDURE DONE: 1. Laparoscopic revision to Beatriz-en-Y gastric bypass. 2. Upper GI endoscopy. SURGEON: Tate Rojas MD. INDICATIONS FOR THE PROCEDURE: The patient is a 55-year-old female who presented with a history of gastric sleeve done 3 years ago. The patient was also noted to have a hiatal hernia. The patient has been having severe gastroesophageal reflux symptoms for the last few years and is refractory to PPIs and therefore, the patient was advised conversion to a Beatriz-en-Y gastric bypass. The patient showed understanding and agreed to proceed. PROCEDURE IN DETAIL: After explaining to the patient in detail and informed consent was obtained, the patient was identified in the preoperative holding area. The patient was transferred to the operating room and was placed in supine position. Sequential compression devices were placed for DVT prophylaxis. Perioperative antibiotics were given. After induction of anesthesia, the abdomen was prepped and draped in a sterile fashion. Through a left upper quadrant 1 cm incision and using Optiview technique, peritoneal cavity was entered and pneumoperitoneum was created. Thereafter, under direct vision, another 5 mm trocar was placed in the left mid abdomen, another 12 mm trocar was placed in the right mid abdomen and another 5 mm trocar was placed in the right subcostal region and through a 1 cm incision in the epigastrium, a Ac retractor was introduced and the left lobe of the liver was retracted. On initial inspection, the patient was noted to have a 4 cm size hiatal hernia. [address] [address] OPERATIVE REPORT Name: LOU WHITMAN ERIC Room #: 454-P [facility] M.R.#: [id number] Admission: 12/12/20 Attend Phys: Tate Rojas MD Discharge: 12/15/20 Date of : 63 Report #: [id number] Using pars flaccida technique, the right coy was identified. The sac was gently dissected off the right coy using hook electrocautery. The phrenoesophageal membrane was divided anteriorly. I continued dissection along the left coy and then posteriorly. There were some adhesions near the angle of His from the sleeve surgery on the left crura, which was also mobilized. Once this was completed, I then performed a posterior cruroplasty with a uyrpdw-yw-qanxp Ethibond suture. I then divided the small blood vessels and the fatty tissues at the junction of the proximal and middle third of the stomach along the lesser curve using the Endo-DANIELITO white load stapler with Atiya-Strips. I then created the pouch by transversely dividing the stomach at this point using Endo-DANIELITO black load stapler. Once this was completed, the omentum was divided in the middle. I then identified the small bowel from the ligament of Treitz downstream for about 50 cm. An enterotomy was made at this point and gastrotomy was made posteriorly on the stomach and the posterior gastrojejunostomy was made to create a 3 cm anastomotic lumen. The common gastroenterotomy was then closed using 2-0 Vicryl sutures for the first layer using EndoStitch device and second layer was closed with 2-0 V-Loc continuous sutures. I then divided the biliary limb just proximal to the anastomosis. I then measured the Beatriz limb downstream for about 125 cm. An enterotomy was made at this point. Another enterotomy was made on the biliary limb and a akhd-cr-gprz jejunojejunostomy was performed. The common enterotomy was closed by firing a stapler blue load with Atiya-Strips across the common enterotomy. The mesenteric defect was closed using 2-0 silk sutures. I then clamped the Beatriz limb and I then performed an upper GI endoscopy. The scope was introduced into the esophagus and was gradually advanced into the gastric pouch, which appeared to be of adequate size. The Beatriz limb was entered without difficulty. An air leak test was performed by insufflation of the stomach and by irrigation of fluid along the staple line. There was no leak that is noted. Absolute hemostasis was ensured. Thorough saline irrigation was given and 10 mL of lidocaine, Marcaine mix was instilled under the left hemidiaphragm. The Ac retractor was removed. The 12 mm port site incision was closed with 0 Vicryl for the fascia. Skin was closed with 4-0 Monocryl. Dermabond was applied. The patient was stable at the end of the procedure. The patient was awoken from anesthesia and was transferred to the recovery room in stable condition. Estimated blood loss was approximately 20 mL. CONDITION OF THE PATIENT: Stable. FLUIDS GIVEN: Per anesthesia notes. SPECIMEN SENT: None. COMPLICATIONS: None. [address] [place] [address] OPERATIVE REPORT Name: LOU WHITMAN Room #: 454-P [facility] M.R.#: [id number] Admission: 12/12/20 Attend Phys: Tate Rojas MD Discharge: 12/15/20 Date of : 63 Report #: [id number] ANESTHESIA: General anesthesia. By: 1527 1735 Tate Rojas MD /nt
[~2020-12-12 06:01] MED LIST changes: +TRULANCE3 MG PO; +ZOLOFT50 M1 PO
[2020-12-12 07:13] LABS: HEMATOCRIT 37.2 % (37.0-47.0); HEMOGLOBIN 12.3 gm/dL (12.0-15.0); MCH 28.7 pg (26.0-34.0); MCHC 33.1 g/dL (28.0-37.0); MCV 86.9 fL (80.0-100.0); RBC 4.28 mil/uL (4.20-5.00); RDW 13.7 % (10.5-14.5); WBC 8.1 thou/uL (4.0-11.0)
[2020-12-12 07:34] LABS: CALCIUM 8.4 mg/dL (8.5-10.1); CREATININE 0.7 mg/dL (0.6-1.0); POTASSIUM 4.3 mmol/L (3.5-5.1)
[2020-12-12 07:38] LABS: ALBUMIN 3.6 g/dL (3.4-5.0); TOTAL BILIRUBIN 0.4 mg/dL (0.2-1.0); TOTAL PROTEIN 6.7 g/dL (6.4-8.2)
[2020-12-12 07:50] VITALS: BP 155/97
[2020-12-12 16:25] VITALS: BP 127/60
[2020-12-12 16:55] VITALS: BP 129/67
--- NOTE | 2020-12-12 17:48 | NUR ---
Patient arrived around 4:20pm, alert and oriented. denied pain, no nausea or vomiting, bed rest now.
[2020-12-12 18:10] VITALS: BP 117/44
[2020-12-12 19:00] VITALS: BP 133/64
[2020-12-12 19:29] VITALS: BP 122/70
[2020-12-13 05:41] VITALS: BP 182/80
--- NOTE | 2020-12-13 05:45 | NUR ---
Pt. rested quietly at intervals during the night when checked on during frequent rounds. She c/o abdominal pain and pain med given (see emar) with some relief of pain noted. Lapsites to her abdomen are intact. Having adequate urinary output via valdes catheter.
[2020-12-13 05:51] VITALS: BP 113/54
[2020-12-13 07:39] VITALS: BP 137/59
--- NOTE | 2020-12-13 11:32 | NUR ---
ASSUMED PT CARE THIS AM. PT A&OX4, ABLE TO MAKE NEEDS KNOWN. PATIENT HAD A WALSH CATHETER IN PLACE, DISCONTINUED AT PHYSICIANS ORDER. PATIENT LAP SITES A DRY AND INTACT. PATIENT REPORTS PAIN AND NAUSEA, GAVE MEDS PER EMAR. IV PATENT, FLUIDS INFUSING. PATIENT REMAINS ON ROOM AIR. DIET CHANGED TO CLEAR LIQUIDS. PATIENT UP AROUND ROOM INDEPENDENTLY. CALL LIGHT WITHIN REACH.
--- NOTE | 2020-12-13 13:21 | NUR ---
PT UP AD EDDIE AROUND ROOM AND NURSING UNIT. PT DECLINED NEED FOR P.T. INTERVENTIONS AT THIS TIME. REQUEST NEW ORDERS IF NEEDED.
[2020-12-13 16:38] VITALS: BP 125/69
[2020-12-13 19:56] VITALS: BP 115/66
--- NOTE | 2020-12-14 03:29 | NUR ---
PT CARE ASSUMED WITH PT IN BED WATCHING TV AT 1900.PT IS A/O X4.PT IS UP AD EDDIE AND EDUCATED TO CALL FOR HELP NEEDED.PT HAS 5LAP SITES WITH DERMABAND C/D/I.PT C/O PAIN AND PAIN MANAGED WITH MORPHINE AND ZOFRAN FOR NAUSEA.IV ACCESS MOVED FROM LT FA TO LT AC.WILL CONTINUE TO MONITOR PER POC
[2020-12-14 07:29] VITALS: BP 132/77
--- NOTE | 2020-12-14 10:54 | NUR ---
ASSUMED PT CARE THIS AM. PT A&OX4, ABLE TO MAKE NEEDS KNOWN. PATIENT AMBULATING AROUND UNIT Q2H AND AROUND ROOM INDEPENDENTLY. PAIN REPORTED IN THE ABDOMEN, RESPONDS WELL TO MEDS GIVEN PER EMAR. LAP SITES TO ABDOMEN ARE DRY AND INTACT. PATIENT REMAINS CONTINENT. ON ROOM AIR. IV REMAINS PATENT, FLUIDS INFUSING. CALL LIGHT WITHIN REACH.
[2020-12-14 20:47] VITALS: BP 133/76
--- NOTE | 2020-12-15 05:30 | NUR ---
Assumed pt care at 1900.A/OX4, VSS. Up ad nasir w/o any problems. Ambulated on the hallway a few times before bed w/o any problems. C/o abd pain 11/13, medicated per EMAR with relief reported. IVF infusing via LAC. NSR On telemetry.Resting quietly at this time,will continue to monitor pt.
[2020-12-15 07:40] VITALS: BP 125/74
[2020-12-15 08:38] VITALS: BP 125/74
== END 2020-12-15 09:10 | disposition home or self-care (01) | DRG 328 ==
LOC: 4S 06:01 → TBA 06:06 → PRE 09:45 → 4S 15:10 → TBA 15:45 → 4W 16:28
PROVIDERS: Student in an Organized Health Care Education/Training Program; ADMIT Surgery; ATTEND Surgery
PROC: 0DJ08ZZ Inspection of Upper Intestinal Tract, Via Natural or Artificial Opening Endoscopic (ICD-10-PCS; principal; 2020-12-13)
PROC: 0DQ64ZZ Repair Stomach, Percutaneous Endoscopic Approach (ICD-10-PCS; principal; 2020-12-13)
DX: K21.9 Gastro-esophageal reflux disease without esophagitis (principal); K44.9 Diaphragmatic hernia without obstruction or gangrene; E66.9 Obesity, unspecified; Z68.32 Body mass index [BMI] 32.0-32.9, adult
CPT/HCPCS: 10045; 10047; 50010; 50101; 50222; 50290; 50386; 50455; 50555; 50558; 51489; 52265; 52266; 53307; 54022; 54118; 55326; 56462; 56525; 56526; 56531; 57092; 58574; 58587; 58871; 58872; 58873; 62110; 62900; 70005

== ENCOUNTER → 2021-01-08 | Outpatient (CLI) | payer OTHER | END | disposition home or self-care (01) | LOC: GI 09:44 | PROVIDERS: ATTEND Internal Medicine Gastroenterology | DX: K59.09 Other constipation (principal); K44.9 Diaphragmatic hernia without obstruction or gangrene; J44.9 Chronic obstructive pulmonary disease, unspecified; Z87.19 Personal history of other diseases of the digestive system; Z98.890 Other specified postprocedural states; Z79.899 Other long term (current) drug therapy; Z98.84 Bariatric surgery status; Z86.73 Personal history of transient ischemic attack (TIA), and cerebral infarction without residual deficits; Z88.8 Allergy status to other drugs, medicaments and biological substances; Z87.440 Personal history of urinary (tract) infections ==